=== PATIENT | female | born 1965 | race Caucasian/White ===

== ENCOUNTER 2016-03-18 02:18 | Emergency (ER) | payer MEDICAID ==
[2016-03-18] MEDS ORDERED: METHYLPRED SOD SUCC 125 MG/2 ML VIAL ONE (05:39)
[2016-03-18] MEDS ORDERED: DUONEB INH ONE ×2 (05:43)
== END 2016-03-18 07:31 | disposition home or self-care (01) ==
LOC: ER 02:18
CPT/HCPCS: 36415; 71010; 80053; 82553; 83880; 84484; 85025; 93005; 94640; 96374